=== PATIENT | female | born 1995 | race Hispanic/Latino ===

== ENCOUNTER 2022-03-30 09:24 | Outpatient (RCR) | payer OTHER, SELFPAY ==
--- NOTE | 2022-03-30 10:48 | PTOPEVAL ---
Thank you for referring Negrita Stevenson to [facility].? She is scheduled to be seen for therapy? 2x/week for 4 weeks. Please review, sign, date and return this plan of care ABDIRASHID. I agree with and certify that the following plan of care is medically necessary. Referring Physician Date Attending Provider: RUTH Gracia Past Medical History Source of Past Medical History Patient Neurological History Hx Neurological Disorders No Significant History Cardiovascular History Hx Cardiac Disorders No Significant History Respiratory History Hx Respiratory Disorders No Significant History Gastrointestinal History Hx Cholecystectomy Yes Genitourinary History Hx Genitourinary Disorders No Significant History Musculoskeletal History Hx Back Pain Yes Hematological History Hx Hematological Disorders No Significant History Endocrine History Hx Endocrine Disorders No Significant History HEENT History Hx HEENT Disorders No Significant History Evaluation Information Diagnosis lumbar radiculopathy Onset about 1 year ago Subjective Information chronic back pain, over 5 yr Query Text:As Reported By Patient/ ago, worse after had her son; Family Diagnostic Tests X-Rays For This Problem Yes Previous Treatments Previous Treatments For This Problem no previous treatment for her back Prior Level of Function Activity Level (Last 3 Months) Occupation not working outside of home Comments Additional Prior Level of Function have not worked for past 2 Comments months due to L leg pain; her job is standing; is able to do all home and self care tasks; have increase pain with lifting and heavy tasks, but can do them Pain Assessment Pain Scale Pain Scale Used Numeric (1 - 10) Self Report Pain Assessment Bilateral Back Reported Pain Level 5 Radicular Pain Location into L LE to above knee Pain Frequency Chronic Lowest Pain Intensity 1 Greatest Pain Intensity 8 Pain Aggravating Factors Bending,Exercise/Activity Other Pain Aggravating Factors lifting, carrying baby, bending L leg up Pain Behaviors Anxious,Grimacing,Guarding Additional Pain Score Comments with sleeping, doing OK; is not using heat/ice- instruct on PRN use; Interventions Used Interventions Used By Clinicians Education,Exercise Pain Relief Interventions Used By Inactivity/Rest,Medication, Patient Position Change Other Alleviating Interventions
--- NOTE | 2022-04-05 10:16 | PCPTNOTE ---
Patient's appointment was cancelled due to staff out of office.
--- NOTE | 2022-04-08 09:06 | PCPTNOTE ---
Patient did not show up for scheduled appointment this date. Called patient and had to leave a message.
--- NOTE | 2022-04-13 08:33 | PCPTNOTE ---
Patient did not show up for scheduled appointment this date. Called and had to leave a message again.
--- NOTE | 2022-04-16 10:11 | PCPTNOTE ---
Patient did not show up for scheduled appointment this date.
--- NOTE | 2022-04-19 08:42 | PCPTNOTE ---
Patient did not show up for scheduled appointment this date. Called and left another message. That this was her 4th no show, and per our policy she would discharged from therapy at this time.
--- NOTE | 2022-04-26 08:44 | PCPTNOTE ---
pt did not show for today's reevaluation.
--- NOTE | 2022-04-26 08:52 | PCPTNOTE ---
PHYSICAL THERAPY DISCHARGE 04-26-22 Attending Provider: RUTH Gracia Patient:Negrtia Bah Date of :1995 Patient has not returned for any further treatments since the initial evaluation on 03/30/2022, therefore she will be discharged at this time. The goals were not assessed. Thank you for referring this patient to [facility]. Please review, sign, date and return this discharge summary ABDIRASHID. I have been updated about the patient's current status and I agree with discharge from the above service at this time. Referring Physician Date
== END 2022-04-26 11:03 | disposition home or self-care (01) ==
LOC: ANHPT 09:24
PROVIDERS: PCP Physician Assistant; Visit Provider Physician Assistant
DX: M54.16 Radiculopathy, lumbar region (principal)
CPT/HCPCS: 97161

== ENCOUNTER 2025-05-28 20:08 | Emergency (ER) | payer OTHER, SELFPAY ==
--- NOTE | ~2025-05-28 | XR_ITS ---
Examination: XR chest 2V Clinical History: L upper ribcage pain Comparison: None Technique: PA and Lateral Findings: Cardiomediastinal silhouette normal size and configuration. Lungs clear. No acute bony abnormality. IMPRESSION: 1. No acute cardiopulmonary findings. Reviewed, dictated and finalized at location R.
--- NOTE | ~2025-05-28 | XR_ITS ---
X-rays left shoulder Indication: Pain Comparison: None Technique: 4 views left shoulder Findings/Impression: 1. No fracture or dislocation left shoulder. 2. No degenerative changes. Reviewed, dictated and finalized at location R.
[2025-05-28 20:27] VITALS: BP 106/72; PULSE 74; RESP 17; TEMP 36.9; O2SAT 100
[2025-05-28] MEDS: ACETAMINOPHEN 325 MG TABLET 650 MG PO (21:09)
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
--- OUTSIDE RECORDS SUMMARY | 2025-05-28 21:57 | XMS_ITS | Clinical Summary ---
Author Organization [facility] Address [address] [place] [address] Care Team Providers Care Estate Planning Paralegal Name Role Phone Unavailable Primary Care Provider Unavailabl e Source Comments [facility],non-owned Affiliates and Associated Physician Practices is amultiple site organization consisting of ambulatory clinics and hospital sitesin [place], [place], [place] and [place]. This disclosure is being madepursuant to the Care Everywhere program and may not contain all information available regarding this patient. Last updated 18.[facility] HipSwap Allergies No known active allergies Social History Tobacco Use Types Packs/Day Years Used Date Smoking Tobacco: Never Assessed Estimated Date of Delivery Comme nts Yes 03/10/2025 Based on last me nstrual period of 06/03/2024 Sex and Gender Information Value Date Recorded Sex Assigned at Not on file Legal Sex Female 9:20 AM CDT Gender Identity Not on file Sexual Orientation Not on file Plan of Treatment Health Maintenance Due Date Last Done Comments HIV SCREENING 2009 HEPATITIS C SCREENING 10/03/2012 DTAP/TDAP/TD VACCINES (1 - Tdap) 2013 HEPATITIS B VACCINE (1 of 3 - 19+ 3-dose series) 2013 PAP SMEAR 2015 HPV VACCINE (1 - 3-dose SCDM series) 2021 DEPRESSION SCREENING 09/12/2024 OB-ONE HOUR GLUCOSE 12/02/2024 OB-TDAP CURRENT 12/09/20242020, 02/25/2016 OB-RHOGAM INJECTION 12/16/2024 OB-GROUP B STREP SCREEN 02/03/2025 COVID-19 VACCINE (3 - 2024-2 6 season) 2025 05/27/2021, 05/06/2021 INFLUENZA VACCINE (#1) 2025 ZOSTER VACCINE (1 of 2) 2044 HIB VACCINE Aged Out No longer eligi ble based on patient's age to complete this topic MENINGOCOCCAL (Group B) VACCINE SHARED DECISION-MAKING Aged Out No longer eligible based on patient's age to complete this topic MENINGOCOCCAL GROUPS A/C/Y/W VACCINE Aged Out No longer eligible b ased on patient's age to complete this topic PNEUMOCOCCAL VACCINE Aged Out No long er eligible based on patient's age to complete this topic Respiratory Syncytial Virus (RSV) Vaccine Pt: or over 60 yrs (No Doses Required) Completed Insurance Member Subscriber Plan / Payer (Ef fective 2021-Present) Name:Negrita Rucker Relation to Subscriber:Self Name:NEGRITA RUCKER Payer ID:[id number] (NAIC) Group ID:Not on file Type:Medicaid Managed Care Address: [facility] CLAIMS DEPARTMENT [place] [phone]
[2025-05-29 01:53] VITALS: BP 129/78; O2SAT 100
== END 2025-05-29 01:54 | disposition home or self-care (01) ==
PROVIDERS: Emergency Provider Registered Nurse; PCP Physician Assistant
DX: S46.912A Strain of unspecified muscle, fascia and tendon at shoulder and upper arm level, left arm, initial encounter (principal); V49.40XA Driver injured in collision with unspecified motor vehicles in traffic accident, initial encounter
CPT/HCPCS: 71046; 73030; 99284; A9270